=== PATIENT | female | born 1945 | race Caucasian/White ===

== ENCOUNTER 2017-02-26 16:17 | Observation (INO) ==
--- NOTE | 2017-02-26 16:37 | Emergency Department Note ---
Disposition Clinical Impression: Chest pain Qualifiers: Chest pain type: chest pain due to myocardial ischemia Ischemic chest pain type : stable angina pectoris Qualified Code(s): I20.8 - Other forms of angina pectoris Disposition: Admitted As Inpatient Condition: Good Chest Pain HPI - General Chief Complaint: ED Chest Pain Stated Complaint: cp Time Seen by Provider: 02/26/17 16:23 Source: patient Mode of arrival: ambulatory Limitations: no limitations Vital Signs Reviewed: Yes Nursing Notes Reviewed: Yes - History of Present Illness HPI Narrative: 71-year-old female presents to ER with complaint chest pain and palpitations. Patient per she was folding laundry and the sudden onset of palpitations. Patient reports she had some associated chest pressure radiating to her jaw on the left side during the episode of palpitations. Patient reports upon arrival to the ER palpitations have improved. Patient reports chest pressure is almost completely gone she reported a 3 out of 10 dull pressure in her jaw with the nurses. When I evaluated patient, reported as 0 out of 10. Patient denied any shortness of breath. Patient denied any nausea vomiting or diaphoresis. Patient has not had similar symptoms in the past. Patient has not had a recent stress test. 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 Duration: constant, now resolved Onset: during rest Pain Location: left chest Severity: moderate Severity scale (1-10): 3 Quality: tightness, heaviness Pain Radiation: jaw/teeth Improves with: nothing Worsens with: nothing Associated symptoms: Denies: nausea, vomiting, diaphoresis, dyspnea Treatments prior to arrival chest pain: none - Related Data On Oral Contraceptives: No Home Medications Medication Instructions Recorded Confirmed Atorvastatin [Lipitor] 10 mg PO HS 02/26/17 02/26/17 Calcium Carbonate [Calcium] 1,200 mg PO DAILY 02/26/17 02/26/17 Cholecalciferol (Vitamin D3) 2,000 unit PO DAILY 02/26/17 02/26/17 [Vitamin D] Gluc 2Kcl/Chondr/Nuha Hy/Hy AC 1,100 mg PO DAILY 02/26/17 02/26/17 [Glucosamine & Chondroitin Cap] Levothyroxine [Synthroid] 112 mcg PO DAILY 02/26/17 02/26/17 Lisinopril [Zestril] 10 mg PO DAILY 02/26/17 02/26/17 Magnesium 250 mg PO DAILY 02/26/17 02/26/17 Meloxicam [Mobic] 15 mg PO DAILY 02/26/17 02/26/17 Multivitamin/Iron/Folic Acid 1 each PO DAILY 02/26/17 02/26/17 [Centrum Complete Multivit Tab] [place]-3/Dha/Epa/Fish Oil [[place] 3 1,500 mg PO BID 02/26/17 02/26/17 500 Softgel] Triamterene/HCTZ 37.5/25mg 1 each PO DAILY 02/26/17 02/26/17 [Dyazide] Venlafaxine [Effexor] 37.5 mg PO DAILY 02/26/17 02/26/17 Vitamin E 1,000 unit PO DAILY 02/26/17 02/26/17 Allergies Allergy/AdvReac Type Severity Reaction Status Date / Time azithromycin [From Zithromax] Allergy Rash Verified 02/26/17 16:22 cephalexin [From Keflex] Allergy Rash Verified 02/26/17 16:42 codeine Allergy Rash Verified 02/26/17 16:22 ondansetron Allergy Rash Verified 02/26/17 16:42 [From Zofran (as hydrochloride)] All systems ED: reviewed and negative except as stated. Constitutional: Denies: fever, chills Cardiovascular: Reports: chest pain, palpitations. 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 Absent: conjunctival injection - ENT ENT exam: normal oropharynx, mucous membranes moist, TM's normal bilaterally - Neck Neck exam: Present: normal inspection, full ROM. Absent: lymphadenopathy, thyromegaly - Expanded Neck Exam Neck exam focused ED: Absent: JVD, carotid bruit - Chest Chest inspection: Present: normal inspection, symmetric chest wall rise - Respiratory Respiratory exam: Present: normal lung sounds bilaterally - Cardiovascular Cardiovascular exam: Present: regular rate, normal rhythm, normal heart sounds - Abdominal Exam Abdominal exam: Present: soft, Non-Tender, normal bowel sounds - Extremities Exam Extremities exam: Present: normal inspection, full ROM - Neurological Exam Neurological exam: Present: alert, oriented X3, CN II-XII intact - Psychiatric Psychiatric exam: Present: normal affect - Skin Skin exam: Present: warm, dry, intact, normal color Course Course Narrative: Patient had no further episodes of chest pain are palpitations in the emergency room. Im suspicious this may been a cardiac event. There are no beds available at [facility]. I have spokenWith Dr. Fraga he is agreed to admit patient here for further observation and management as needed. I have discussed all labs and admission with patient she is in agreement with plan. Vital Signs Temperature 98.0 F 02/26/17 16:17 Pulse Rate 110 02/26/17 16:17 Respiratory Rate 20 02/26/17 16:17 Blood Pressure 158/87 02/26/17 16:17 O2 Sat by Pulse Oximetry 98 02/26/17 16:17 Temperature 97.9 F 02/27/17 07:44 Pulse Rate 68 02/27/17 07:44 Respiratory Rate 16 02/27/17 04:00 Blood Pressure 118/61 02/27/17 07:44 O2 Sat by Pulse Oximetry 95 02/27/17 07:44 Oxygen Delivery Oxygen Delivery Room Air Chest Pain - Differential Diagnosis Likely: stable angina, atypical chest pain, chest pain. Unlikely: st elevation myocardial infraction - Lab Data Lab results reviewed: Yes I reviewed the patient's lab results. Lab results narrative: Patient was slightly elevated glucose. Patient's cardiac labs are negative. Results discussed with patient. Result diagrams: 02/27/17 08:00 02/27/17 08:00 Lab Results 02/26/17 02/26/17 02/26/17 Range/Units 16:20 16:20 16:20 WBC 9.3 (4.3-11.1) K/mcL RBC 4.61 (3.82-4.97) M/mcL Hgb 14.5 (11.5-15.4) g/dL Hct 42.1 (35.3-44.9) % MCV 91.3 (83.0-100.0) fL MCH 31.5 (28.0-33.3) pg MCHC 34.4 (31.6-35.5) g/dL RDW 11.9 (11.5-14.5) % Plt Count 333 (140-400) K/mcL MPV 11.3 (9.4-12.4) fL Immature Gran % 0.3 (0-4) % Seg Neutrophils % 57.6 % Lymphocytes % 28.8 % Monocytes % 7.9 % Eosinophils % 4.8 % Basophils % 0.6 % Neutrophils # 5.4 (1.6-8.9) K/mcL Lymphocytes # 2.7 (0.6-4.6) K/mcL Monocytes # 0.7 (0.0-1.3) K/mcL Eosinophils # 0.5 (0.0-0.6) K/mcL Basophils # 0.1 (0.0-0.2) K/mcL PT 10.3 (9.4-12.1) Seconds INR 1.0 APTT 28.3 (26.0-36.0) Seconds Sodium 139 (136-145) mEq/L Potassium 3.3 L (3.5-4.5) mEq/L Chloride 104 (98-109) mEq/L Carbon Dioxide 27 (19-29) mEq/L BUN 32 H (7-20) mg/dL Creatinine 1.12 H (0.57-1.11) mg/dL Est GFR ( Amer) 58 L (> 60) Est GFR (Non-Af Amer) 48 L (> 60) BUN/Creatinine Ratio 29 H (6-26) Glucose 153 H (70-99) mg/dL Calculated Osmolality 298 (280-300) Calcium 9.8 (8.6-10.8) mg/dL Total Bilirubin 0.3 (0.2-1.2) mg/dL AST 25 (5-34) Units/L ALT 32 (0-55) Units/L Alkaline Phosphatase 134 H (38-126) Units/L Creatine Kinase 105 (29-168) Units/L Troponin I (0-0.03) ng/mL B-Natriuretic Peptide (0-100) pg/mL Serum Total Protein 7.0 (6.0-8.3) g/dL Albumin 3.6 (3.5-5.0) g/dL Globulin 3.4 (2.4-3.5) g/dL Albumin/Globulin Ratio 1.1 (1.1-2.2) Amylase 77 (25-125) Units/L Lipase 47 (8-78) Units/L 02/26/17 02/26/17 Range/Units 16:20 16:20 WBC (4.3-11.1) K/mcL RBC (3.82-4.97) M/mcL Hgb (11.5-15.4) g/dL Hct (35.3-44.9) % MCV (83.0-100.0) fL MCH (28.0-33.3) pg MCHC (31.6-35.5) g/dL RDW (11.5-14.5) % Plt Count (140-400) K/mcL MPV (9.4-12.4) fL Immature Gran % (0-4) % Seg Neutrophils % % Lymphocytes % % Monocytes % % Eosinophils % % Basophils % % Neutrophils # (1.6-8.9) K/mcL Lymphocytes # (0.6-4.6) K/mcL Monocytes # (0.0-1.3) K/mcL Eosinophils # (0.0-0.6) K/mcL Basophils # (0.0-0.2) K/mcL PT (9.4-12.1) Seconds INR APTT (26.0-36.0) Seconds Sodium (136-145) mEq/L Potassium (3.5-4.5) mEq/L Chloride (98-109) mEq/L Carbon Dioxide (19-29) mEq/L BUN (7-20) mg/dL Creatinine (0.57-1.11) mg/dL Est GFR ( Amer) (> 60) Est GFR (Non-Af Amer) (> 60) BUN/Creatinine Ratio (6-26) Glucose (70-99) mg/dL Calculated Osmolality (280-300) Calcium (8.6-10.8) mg/dL Total Bilirubin (0.2-1.2) mg/dL AST (5-34) Units/L ALT (0-55) Units/L Alkaline Phosphatase (38-126) Units/L Creatine Kinase (29-168) Units/L Troponin I 0.01 (0-0.03) ng/mL B-Natriuretic Peptide 15 (0-100) pg/mL Serum Total Protein (6.0-8.3) g/dL Albumin (3.5-5.0) g/dL Globulin (2.4-3.5) g/dL Albumin/Globulin Ratio (1.1-2.2) Amylase (25-125) Units/L Lipase (8-78) Units/L - Radiology Data Radiology results reviewed: Yes I reviewed the patient's radiology results. Patient's chest x-ray was interpreted by the radiologist and reviewed by me as negative for acute abdomen. Results discussed with patient. Heart Score - Score History: Moderately Suspicious EKG: Normal Age: Greater than 65 Risk Factors: 1-2 risk factors Troponin: Less than normal limit HEART Score Total: 4
[2017-02-26] MEDS ORDERED: Aspirin 81 MG TAB.CHEW PO ONE (16:39)
[2017-02-26 16:47] LABS: Basophils # 0.1 K/mcL (0.0-0.2); Basophils % 0.6 %; Eosinophils # 0.5 K/mcL (0.0-0.6); Eosinophils % 4.8 %; Hematocrit 42.1 % (35.3-44.9); Hemoglobin 14.5 g/dL (11.5-15.4); Immature Granulocytes % 0.3 % (0-4); Lymphocytes # 2.7 K/mcL (0.6-4.6); Lymphocytes % 28.8 %; Mean Corpuscular HGB Conc 34.4 g/dL (31.6-35.5); Mean Corpuscular Hemoglobin 31.5 pg (28.0-33.3); Mean Corpuscular Volume 91.3 fL (83.0-100.0); Mean Platelet Volume 11.3 fL (9.4-12.4); Monocytes # 0.7 K/mcL (0.0-1.3); Monocytes % 7.9 %; Neutrophils # 5.4 K/mcL (1.6-8.9); Platelet Count 333 K/mcL (140-400); Red Blood Count 4.61 M/mcL (3.82-4.97); Red Cell Distribution Width 11.9 % (11.5-14.5); Segmented Neutrophils % 57.6 %
[2017-02-26 16:48] LABS: Prothrombin Time 10.3 Seconds (9.4-12.1)
[2017-02-26 16:51] LABS: Activated Partial Thrombo Time 28.3 Seconds (26.0-36.0)
[2017-02-26 16:59] LABS: Albumin 3.6 g/dL (3.5-5.0); Albumin/Globulin Ratio 1.1 (1.1-2.2); Bilirubin,Total 0.3 mg/dL (0.2-1.2); Calcium 9.8 mg/dL (8.6-10.8); Globulin 3.4 g/dL (2.4-3.5); Potassium 3.3 mEq/L (3.5-4.5)
[2017-02-26] MEDS ORDERED: Acetaminophen 325 MG TABLET PO PRN (18:27)
[2017-02-26] MEDS ORDERED: Naloxone 0.4 MG/ML INJ IVP PRN (18:27)
[2017-02-26] MEDS: DHA PO SCH (22:02)
[2017-02-26] MEDS: FISH OIL PO SCH (22:02)
[2017-02-26] MEDS: EPA PO SCH (22:02)
[2017-02-26] MEDS: OMEGA PO SCH (22:02)
[2017-02-27] MEDS: Cholecalciferol (D-3) 1,000 UNIT TABLET PO SCH (08:19)
[2017-02-27] MEDS: Magnesium Oxide 400 MG TABLET PO SCH (08:19)
[2017-02-27] MEDS: Aspirin Enteric Coated 81 MG Tablet PO SCH (08:20)
[2017-02-27] MEDS: Multivit/Ca/Min/Fe/FA 1 TAB TABLET PO SCH (08:20)
[2017-02-27] MEDS: OMEGA PO SCH (08:22)
[2017-02-27] MEDS: DHA PO SCH (08:22)
[2017-02-27] MEDS: FISH OIL PO SCH (08:22)
[2017-02-27] MEDS: [UNRECOGNIZED DRUG - OTHER] PO SCH (08:22)
[2017-02-27] MEDS: EPA PO SCH (08:22)
[2017-02-27 08:26] LABS: Basophils # 0.1 K/mcL (0.0-0.2); Basophils % 0.9 %; Eosinophils # 0.5 K/mcL (0.0-0.6); Eosinophils % 6.6 %; Hematocrit 40.5 % (35.3-44.9); Hemoglobin 13.8 g/dL (11.5-15.4); Immature Granulocytes % 0.3 % (0-4); Lymphocytes # 1.5 K/mcL (0.6-4.6); Lymphocytes % 22.1 %; Mean Corpuscular HGB Conc 34.1 g/dL (31.6-35.5); Mean Corpuscular Hemoglobin 31.2 pg (28.0-33.3); Mean Corpuscular Volume 91.6 fL (83.0-100.0); Mean Platelet Volume 11.1 fL (9.4-12.4); Monocytes # 0.5 K/mcL (0.0-1.3); Neutrophils # 4.4 K/mcL (1.6-8.9); Platelet Count 282 K/mcL (140-400); Red Blood Count 4.42 M/mcL (3.82-4.97); Red Cell Distribution Width 11.9 % (11.5-14.5); Segmented Neutrophils % 63.1 %
[2017-02-27 08:27] LABS: BUN/Creatinine Ratio 27 (6-26); Blood Urea Nitrogen 26 mg/dL (7-20); Calcium 9.3 mg/dL (8.6-10.8); Carbon Dioxide 27 mEq/L (19-29); Chloride 105 mEq/L (98-109); Glucose 136 mg/dL (70-99); Osmolality,Calculated 299 (280-300); Potassium 3.7 mEq/L (3.5-4.5); Sodium 141 mEq/L (136-145); eGFR For African Americans > 60 (> 60); eGFR For Non-African Americans 56 (> 60)
--- NOTE | 2017-02-27 11:46 | Internal Med History&Physical ---
Date of Encounter: 02/27/17 Time of Encounter: 11:44 Assessment and Plan (1) Chest pain Current visit: Yes Status: Acute Patient had chest pain or discomfort radiating into her left neck and jaw. She also had palpitations and she thought racing heart rate she is going to be worked up to rule out any coronary artery disease etc. With nuclear stress test and a cardiology consult. Qualifiers: Chest pain type: chest pain due to myocardial ischemia Ischemic chest pain type: stable angina pectoris Qualified Code(s): I20.8 - Other forms of angina pectoris Internal Medicine - H&P: HPI Chief complaint: Patient presented to the emergency room last night with discomfort in the c Admitted From: Emergency Dept Plans for Post Hospital Care: Home History of present illness: Ms. Woo is a 71 year old female Past Med Surg Social Fam HX - Past Medical History Medical history: cancer, hyperlipidemia, hypertension Psychiatric history: anxiety, depression - Past Surgical History Surgical History: other (b/l mastectomy) - Social History Smoking Status: Never smoker Alcohol use: none Drug use: none Internal Medicine - H&P: Meds Atorvastatin [Lipitor] 10 mg PO HS 02/26/17 [History] Calcium Carbonate [Calcium] 1,200 mg PO DAILY 02/26/17 [History] Cholecalciferol (Vitamin D3) [Vitamin D] 2,000 unit PO DAILY 02/26/17 [History] Gluc 2Kcl/Chondr/Nuha Hy/Hy AC [Glucosamine & Chondroitin Cap] 1,100 mg PO DAILY 02/26/17 [History] Levothyroxine [Synthroid] 112 mcg PO DAILY 02/26/17 [History] Lisinopril [Zestril] 10 mg PO DAILY 02/26/17 [History] Magnesium 250 mg PO DAILY 02/26/17 [History] Meloxicam [Mobic] 15 mg PO DAILY 02/26/17 [History] Multivitamin/Iron/Folic Acid [Centrum Complete Multivit Tab] 1 each PO DAILY [History] [place]-3/Dha/Epa/Fish Oil [[place] 3 500 Softgel] 1,500 mg PO BID 02/26/17 [History ] Triamterene/HCTZ 37.5/25mg [Dyazide] 1 each PO DAILY 02/26/17 [History] Venlafaxine [Effexor] 37.5 mg PO DAILY 02/26/17 [History] Vitamin E 1,000 unit PO DAILY 02/26/17 [History] 3 Allergy/AdvReac Type Severity Reaction Status Date / Time azithromycin [From Zithromax] Allergy Rash Verified 02/26/17 16:22 cephalexin [From Keflex] Allergy Rash Verified 02/26/17 16:42 codeine Allergy Rash Verified 02/26/17 16:22 ondansetron Allergy Rash Verified 02/26/17 16:42 [From Zofran (as hydrochloride)] All Systems PM: A 10-system review of systems was performed and is negative for pertinent findings except as documented above in the HPI. - Constitutional Constitutional: fatigue, lethargy, no anorexia, no chills, no excessive sweating , no fever(s), no falls, no malaise, no night sweats, no weakness, no weight gain, no weight loss, no other - EENT Eyes: no blurry vision, no change in vision, no decreased night vision, no diplopia, no discharge, no dry eye, no floaters, no irritation, no itchy eyes, no loss of peripheral vision, no loss of vision, no pain, no seeing flashes, no spots in vision, no tunnel vision, no other visual disturbances Nose, mouth and throat: no bleeding gums, no change in voice, no dental pain, no dry mouth, no dysphagia, no epistaxis, no facial pain, no hoarseness, no lip swelling, no mouth lesions, no mouth pain, no nasal congestion, no nasal discharge, no nasal obstruction, no neck mass, no neck pain, no nose pain, no odynophagia, no post-nasal drip, no sinus pain, no sinus pressure, no sore throat, no throat swelling, no tongue swelling - Breasts Breasts: no change in shape, no mass, no pain, no nipple discharge, no skin changes, no swelling - Cardiovascular Cardiovascular ROS IM: chest pain, irregular heart rhythm, palpitations, no claudication, no diaphoresis, no dyspnea, no dyspnea on exertion, no edema, no lightheadedness, no orthopnea, no paroxysmal nocturnal dyspnea, no syncope - Respiratory Respiratory: no cough, no dyspnea, no hemoptysis, no dyspnea on exertion, no wheezing, no snoring, no stridor, no pain on inspiration, no chest congestion, no excessive phlegm production, no change in phlegm color, no pain with cough - Gastrointestinal Gastrointestinal: no abdominal pain, no belching, no bloating, no change in bowel habits, no change in stool character, no coffee ground emesis, no constipation, no diarrhea, no dyspepsia, no dysphagia, no early satiety, no excessive flatus, no fecal incontinence, no heartburn, no hematemesis, no hematochezia, no loose stools, no melena, no nausea, no odynophagia, no tenesmus , no vomiting - Genitourinary Genitourinary: no as per HPI, no abnormal menses, no abnormal vaginal bleeding, no amenorrhea, no breast change in shape, no breast mass, no breast pain, no breast skin changes, no breast swelling, no change in libido, no change in urinary stream, no difficulty conceiving, no difficulty urinating, no difficulty voiding, no dysmenorrhea, no dyspareunia, no dysuria, no flank pain, no genital lesions, no genital pruritis, no hematuria, no hot flashes, no light periods, no menorrhagia, no metrorrhagia, no nipple discharge, no nocturia, no pelvic pain, no post void dribbling, no prolapse symptoms, no sexual dysfunction , no urinary frequency, no urinary hesitancy, no urinary incontinence, no urinary urgency, no vaginal discharge, no vaginal dryness, no vaginal odor, no vaginal pruritis Additional comments: Not applicable - Musculoskeletal Musculoskeletal ROS IM: no arthralgias, no atrophy, no back pain, no deformity, no joint swelling, no limited range of motion, no muscle cramps, no muscle weakness, no myalgias, no neck pain, no numbness, no stiffness, no tingling - Integumentary Integumentary IM: no erythema, no new lesions, no non-healing lesions, no pruritus, no rash, no skin ulcer, no sores, no unusual bruising, no jaundice - Neurological Neurological ROS: no abnormal gait, no abnormal hearing, no abnormal movements, no abnormal speech, no behavioral changes, no burning sensations, no confusion, no convulsions, no disequilibrium, no dizziness, no focal weakness, no frequent falls, no headache(s), no lack of coordination, no loss of vision, no memory loss, no numbness, no paresthesias, no radicular pain, no restless legs, no tingling, no tremor(s), no vertigo, no weakness, no other visual disturbances - Endocrine Endocrine IM: no cold intolerance, no deeping of the voice, no excessive sweating, no fatigue, no flushing, no heat intolerance, no polydipsia, no polyphagia, no polyuria - Hematologic/Lymphatic Hematologic/Lymphatic: no easy bleeding, no easy bruising, no lymphadenopathy - Allergic/Immunologic Allergic/Immunologic: no tongue swelling, no throat swelling, no itchy eyes, no uticaria, no wheezing, no GI upset with certain foods, no lip swelling - Constitutional Vitals: Temp Pulse Resp BP Pulse Ox 97.9 F 71 16 145/71 91 02/27/17 11:33 02/27/17 11:33 02/27/17 04:00 02/27/17 11:33 02/27/17 11:33 General appearance: Present: cooperative, A&O X 3, pleasant, answers questions appropriately - Head Head exam: Present: atraumatic, normal inspection, normocephalic - Neck Neck exam general surgery: Present: supple, trachea midline. Absent: lymphadenopathy - Respiratory Respiratory exam: Present: CTAB. Absent: accessory muscle use, rales, rhonchi, wheezes - Cardiovascular Cardiovascular exam: Present: RRR, +S1, +S2. Absent: diastolic murmur, gallop, rubs, systolic murmur - GI/Abdominal GI/Abdominal exam: Present: normal bowel sounds, soft, no peritoneal signs. Absent: distended, tenderness Internal Med - H&P Results - Labs CBC & Chem 7: 02/27/17 08:00 02/27/17 08:00 Labs: Short CBC 02/27/17 Range/Units 08:00 WBC 7.0 (4.3-11.1) K/mcL Hgb 13.8 (11.5-15.4) g/dL Hct 40.5 (35.3-44.9) % Plt Count 282 (140-400) K/mcL Neutrophils # 4.4 (1.6-8.9) K/mcL BMP 02/27/17 08:00 Sodium 141 Potassium 3.7 Chloride 105 Carbon Dioxide 27 BUN 26 H Creatinine 0.98 Glucose 136 H Calcium 9.3 Cardiac Enzymes 02/27/17 02/27/17 Range/Units 00:15 08:00 Troponin I 0.01 0.01 (0-0.03) ng/mL BUN is modestly increased. Patient states she has not been drinking much water. The troponin is negative but the TSH is above 9. I spoke with her primary care physician who repeated that and adjusted the dose on her last visit. So we may not have to intervene just yet give that a chance to work. Also her blood sugars were slightly elevated and hemoglobin A1c was greater than 6. - VTE Documentation of Mechanical Device: Graduated compression elastic hosiery
--- NOTE | 2017-02-27 19:39 | Electrocardiograph Report ---
[place] [id number] Test Date: 2017-02-26 Pat Name: Mildred Woo Department: 2000 Room: 112 Gender: F Video Specialist: : 1945 Requested By: Rhonda Delcid Order Number: [id number] Reading MD: Concha Hines Measurements Intervals [place] Rate: 118 P: 49 [place]: 175 QRS: -5 QRSD: 102 T: 42 QT: 315 QTc: 385 Interpretive Statements SINUS TACHYCARDIA LEFT VENTRICULAR HYPERTROPHY AND ST-T CHANGE Electronically Signed On 02-27-2017 19:37:30 EST by Concha Hines
[2017-02-28] MEDS: FISH OIL PO SCH ×2 (03:07→08:52)
[2017-02-28] MEDS: EPA PO SCH ×2 (03:07→08:52)
[2017-02-28] MEDS: DHA PO SCH ×2 (03:07→08:52)
[2017-02-28] MEDS: OMEGA PO SCH ×2 (03:07→08:52)
[2017-02-28] MEDS: Cholecalciferol (D-3) 1,000 UNIT TABLET PO SCH (08:51)
[2017-02-28] MEDS: Aspirin Enteric Coated 81 MG Tablet PO SCH (08:51)
[2017-02-28] MEDS: Multivit/Ca/Min/Fe/FA 1 TAB TABLET PO SCH (08:51)
[2017-02-28] MEDS: Magnesium Oxide 400 MG TABLET PO SCH (08:51)
[2017-02-28] MEDS: [UNRECOGNIZED DRUG - OTHER] PO SCH (08:52)
--- NOTE | 2017-02-28 15:27 | Discharge Summary ---
Date of Encounter: 02/28/17 Time of Encounter: 15:27 - Discharge Diagnosis (1) Chest pain Priority: Primary Status: Acute Qualifiers: Chest pain type: chest pain due to myocardial ischemia Ischemic chest pain type: stable angina pectoris Qualified Code(s): I20.8 - Other forms of angina pectoris - Discharge Medications Home Medications: Atorvastatin [Lipitor] 10 mg PO HS 02/26/17 [History] Calcium Carbonate [Calcium] 1,200 mg PO DAILY 02/26/17 [History] Cholecalciferol (Vitamin D3) [Vitamin D] 2,000 unit PO DAILY 02/26/17 [History] Gluc 2Kcl/Chondr/Nuha Hy/Hy AC [Glucosamine & Chondroitin Cap] 1,100 mg PO DAILY 02/26/17 [History] Levothyroxine [Synthroid] 112 mcg PO DAILY 02/26/17 [History] Lisinopril [Zestril] 10 mg PO DAILY 02/26/17 [History] Magnesium 250 mg PO DAILY 02/26/17 [History] Meloxicam [Mobic] 15 mg PO DAILY 02/26/17 [History] Multivitamin/Iron/Folic Acid [[place] Complete Multivit Tab] 1 each PO DAILY [History] [place]-3/Dha/Epa/Fish Oil [[place] 3 500 Softgel] 1,500 mg PO BID 02/26/17 [History ] Triamterene/HCTZ 37.5/25mg [Dyazide] 1 each PO DAILY 02/26/17 [History] Venlafaxine [Effexor] 37.5 mg PO DAILY 02/26/17 [History] Vitamin E 1,000 unit PO DAILY 02/26/17 [History] Allergies/Adverse Reactions: 3 Allergy/AdvReac Type Severity Reaction Status Date / Time azithromycin [From Zithromax] Allergy Rash Verified 02/26/17 16:22 cephalexin [From Keflex] Allergy Rash Verified 02/26/17 16:42 codeine Allergy Rash Verified 02/26/17 16:22 ondansetron Allergy Rash Verified 02/26/17 16:42 [From Zofran (as hydrochloride)] Procedures/tests Complete & Pending: Procedures Performed prior 72 hours Category Date Time Status NM brandon perf SPECT multi [NM] Routine Exams 02/27/17 12:44 Taken SP exercise nuclear stress Routine Y 02/28/17 12:42 Completed Date of admission: 02/26/17 18:22 Primary care physician: Jeb Cloud MD Consults: 02/27/17 12:44 Consult to Cardiology [CONS] Routine Comment: Consulting Provider: Mauro Laws Reason for Consult: chest pain admit to [facility] Call Completed: Yes Discharging clinician: Maik Fraga Anticipated date of discharge: 02/28/17 - Patient Status Disposition: Home, Self-Care Functional capacity at discharge: independent ambulation Overall status at discharge: patient is back to baseline - Discharge Instructions Instructions: Chest Pain (DC) Follow Up With: jessika cloud [Other] - 03/06/17 12:30 pm - Diet and Activity Activity: resume usual activities as tolerated Diet: diabetic diet Interval History: She experienced some chest pain at home. This was preceded by palpitations and then chest discomfort with radiation left neck and left jaw Hospital course: Ms. Woo is a 71 year old female Who presented to the emergency room with chest discomfort radiating to the neck and jaw she was placed in for serial troponins and I did a nuclear stress test on her today and will have a follow-up appointment with the field foreman. Her both her EKG portion and the nuclear SPECT portion of the test for ischemic heart disease was negative - Time Spent with Patient Total time spent providing and/or coordinating discharge services: Less than 30 minutes - Constitutional Vitals: Temp Pulse Resp BP Pulse Ox 97.6 F 97 18 130/79 95 02/28/17 09:46 02/28/17 09:46 02/28/17 09:46 02/28/17 09:46 02/28/17 09:46 General appearance: Present: cooperative, A&O X 3, pleasant, answers questions appropriately - Head Head exam: Present: atraumatic, normal inspection, normocephalic - Neck Neck exam general surgery: Present: supple, trachea midline. Absent: lymphadenopathy - Respiratory Respiratory exam: Present: CTAB. Absent: accessory muscle use, rales, rhonchi, wheezes - Cardiovascular Cardiovascular exam: Present: RRR, +S1, +S2. Absent: diastolic murmur, gallop, rubs, systolic murmur - GI/Abdominal GI/Abdominal exam: Present: normal bowel sounds, soft, no peritoneal signs. Absent: distended, tenderness - VTE Documentation of Mechanical Device: Graduated compression elastic hosiery
[2017-02-28 15:59] VITALS: BP 166/82
== END 2017-02-28 16:35 | disposition home or self-care (01) ==
LOC: INPGRE 16:17 → EMEROOGRE 16:17 → INPGRE 18:27
PROVIDERS: ADMIT Internal Medicine; ATTEND Internal Medicine